=== PATIENT | female | born 1950 | race Asian ===

== ENCOUNTER 2021-12-06 13:05 | Outpatient (CLI) | payer MEDICARE, BC | END 2021-12-06 13:06 | disposition home or self-care (01) | LOC: CSHMAMMO 13:05 | PROVIDERS: ATTEND Internal Medicine | DX: M81.0 Age-related osteoporosis without current pathological fracture (principal); M85.88 Other specified disorders of bone density and structure, other site | CPT/HCPCS: 77080 ==